=== PATIENT | male | born 1995 | race African-American/Black ===

== ENCOUNTER 2023-05-27 23:25 | Emergency (ER) | payer OTHER, BC, SELFPAY ==
--- NOTE | ~2023-05-27 | XR_ITS ---
EXAMINATION: XR lumbar spine 2-3V DATE: 05/28/2023 00:42 INDICATION: Low back pain TECHNIQUE: Anteroposterior and lateral views of the lumbar spine, and cone-down lateral view of the l umbosacral junction were obtained. COMPARISON: None. FINDINGS: No fracture, dislocation, or subluxation. The vertebral body heights, alignment, and interv ertebral disc spaces are normal. The paravertebral soft tissues are unremarkable. IMPRESSION: 1. No acute osseous abnormality. Reviewed, dictated and finalized at location A.
--- NOTE | ~2023-05-27 | XR_ITS ---
EXAMINATION: XR thoracic spine 3V DATE: 05/28/2023 00:42 INDICATION: Thoracic back pain TECHNIQUE: AP, lateral and lateral swimmer's views of the thoracic spine were obtained. COMPARISON: None. FINDINGS: No fracture, dislocation, or subluxation. The vertebral body heights, alignment, and interv ertebral disc spaces are normal. The paravertebral soft tissues are unremarkable. There are 7 degrees of thoracic dextrocurvature. IMPRESSION: 1. No acute osseous abnormality. Reviewed, dictated and finalized at location A.
--- NOTE | ~2023-05-27 | XR_ITS ---
EXAMINATION:XR_CERV2-3V_CR DATE: 05/28/2023 00:42 INDICATION: Neck pain TECHNIQUE: AP, lateral, lateral swimmers and odontoid views of the cervical spine are provided. COMPARISON: None FINDINGS: Alignment is normal. The odontoid process is intact. No fracture is identified. Vertebral b sivan heights and disk spaces are normal. Prevertebral soft tissues are normal. IMPRESSION: 1. No acute osseous abnormality. Reviewed, dictated and finalized at location A.
[2023-05-27 23:35] VITALS: BP 146/87; PULSE 66; RESP 15; TEMP 36.6; O2SAT 98
[2023-05-28 03:09] VITALS: BP 133/84; PULSE 60; RESP 16; O2SAT 100
[2023-05-28] MEDS: IBUPROFEN 400 MG TABLET 800 MG PO (05:07)
[2023-05-28] MEDS: methocarbamoL 750 MG TABLET 1500 MG PO (05:08)
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
[2023-05-28] MEDS: ACETAMINOPHEN 500 MG TABLET 1000 MG PO (05:09)
== END 2023-05-28 05:19 | disposition home or self-care (01) ==
PROVIDERS: Emergency Provider Emergency Medicine; PCP Internal Medicine
DX: S19.9XXA Unspecified injury of neck, initial encounter (principal); V43.52XA Car driver injured in collision with other type car in traffic accident, initial encounter
CPT/HCPCS: 72040; 72072; 72100; 99284; A9270